=== PATIENT | female | born 1980 | race Caucasian/White ===

== ENCOUNTER → 2017-05-27 | Outpatient (CLI) | payer BC ==
[~2017-05-27] MED LIST: ADVIN25/60 INH; ALBUAER19 INH; ALPR-411 PO; AZEL0.15; CETI10TA10 PO; CYCL10TA6 PO; FLUT0.15; GABA-113 PO; MONT1TAB3 PO; RANI300T2 PO; SPIR100T PO
--- NOTE | 2017-05-27 15:29 | DIAGNOSTIC IMAGING REPORT ---
MRI LUMBAR SPINE W/O CONTRAST CLINICAL HISTORY: Low back pain with left-sided radiculopathy. Foot drop. Incontinence. TECHNIQUE: Sagittal and axial T1, T2 and STIR images were obtained. COMPARISON STUDY: 09/01/2015 OBSERVATIONS: The vertebral bodies and posterior elements appear intact. There is no abnormal bony signal present to suggest a marrow replacement process. L1-2: No disc protrusions or extrusions. No evidence of spinal canal or neural foraminal compromise. L2-3: No disc protrusions or extrusions. No evidence of spinal canal or neural foraminal compromise. L3-4: There is an annular fissure and tiny central disc protrusion. There is minimal deformity of the anterior thecal sac. There is no significant foraminal narrowing. L4-5: There is been marked interval decrease in the size of the previously identified right-sided disc extrusion.. There is mild right subforaminal narrowing. L5-S1: No disc protrusions or extrusions. No evidence of spinal canal or neural foraminal compromise. The conus medullaris and cauda equina appear normal. IMPRESSION: 1. Annular fissure and tiny central disc protrusion at the L3-4 level. 2. Marked interval decrease in the size of the right-sided disc extrusion at the L4-5 level. Electronically signed by: Jamie Shay M.D. 05/27/2017 3:27 PM Dictated Date/Time: 05/27/2017 2:43 PM
== END | disposition home or self-care (01) ==
LOC: C.MRIBC 13:48
PROVIDERS: ATTEND Physical Medicine & Rehabilitation
DX: M21.372 Foot drop, left foot (principal); M51.16 Intervertebral disc disorders with radiculopathy, lumbar region